=== PATIENT | female | born 1975 | race Two or more races ===

== ENCOUNTER 2019-11-12 17:50 | Emergency (ER) | payer MEDICAID, OTHER ==
[~2019-11-12] VITALS: Ht 160 cm; Wt 108.9 kg
[2019-11-12 20:50] VITALS: BP 134/79
== END 2019-11-12 21:40 | disposition home or self-care (01) ==
LOC: EDBD 17:50 → ER 17:50
DX: S00.03XA Contusion of scalp, initial encounter (principal); S40.022A Contusion of left upper arm, initial encounter; S70.11XA Contusion of right thigh, initial encounter; M62.838 Other muscle spasm; R51 Headache; F31.9 Bipolar disorder, unspecified; Z98.890 Other specified postprocedural states; V49.49XA Driver injured in collision with other motor vehicles in traffic accident, initial encounter; Y93.89 Activity, other specified; Y92.488 Other paved roadways as the place of occurrence of the external cause; Y99.8 Other external cause status
CPT/HCPCS: 70450